=== PATIENT | female | born 1950 | race Caucasian/White ===

== ENCOUNTER → 2017-02-23 | Outpatient (CLI) | payer MEDICARE | END | disposition home or self-care (01) | LOC: GMAB 10:31 | PROVIDERS: ATTEND Family Medicine | DX: R53.82 Chronic fatigue, unspecified (principal) ==

== ENCOUNTER → 2018-04-25 | Outpatient (CLI) | payer MEDICARE | LOC: GMAE 11:39 | PROVIDERS: ATTEND Family Medicine | DX: R53.82 Chronic fatigue, unspecified (principal) ==

== ENCOUNTER → 2020-03-20 | Outpatient (CLI) | payer MEDICARE, OTHER | LOC: GMAE 10:32 | PROVIDERS: ATTEND Family Medicine | DX: Z79.899 Other long term (current) drug therapy (principal); E78.49 Other hyperlipidemia ==